=== PATIENT | female | born 1980 | race Asian ===

== ENCOUNTER 2016-12-05 05:46 | Day surgery (SDC) | payer OTHER ==
[~2016-12-05] VITALS: Ht 154.9 cm; Wt 68.2 kg
[~2016-12-05 05:46] MED LIST: IBUP800T28 PO; LEVO50TA6 PO; Lactated Ringer's 1,000 ML IV SCH
[2016-12-05] MEDS ORDERED: DEXTROSE 5% IV SCH (06:00)
[2016-12-05] MEDS ORDERED: GENTAMICIN IV SCH (06:00)
[2016-12-05] MEDS ORDERED: Clindamycin Inj 900 MG in IV Premix 1 EACH IV SCH (06:00)
[2016-12-05] MEDS ORDERED: Gentamicin Per Pharmacist XX ONE (06:00)
[2016-12-05 06:15] VITALS: BP 121/72; PULSE 94; RESP 16; O2SAT 100
[2016-12-05 07:53] LABS: BASOPHILS % (AUTO) 0.9 % (0-3); MONOCYTES % (AUTO) 9.2 % (4-12); Mean Corpuscular Hemoglobin 15.3 pg (27.0-35.0); Mean Corpuscular Volume 58.3 fL (81-100); NEUTROPHILS % (AUTO) 59.3 % (40-74); Platelet Count 298 bil/L (150-400)
--- NOTE | 2016-12-05 08:10 | PCM.DIMED ---
Discharge Instructions Date of Service Dec 05, 2016 Dates of Hospitalization Diet No restrictions Activity No restrictions Call your provider Fever or Chills, Shortness of breath, Bleeding, Chest pain, Vomitting, Excessive diarrhea, Weakness (unilateral) Patient Instructions Follow-up with PCP in: 2 weeks Hernandez Winslow MD Dec 05, 2016 08:10
--- NOTE | 2016-12-05 12:31 | DIS ---
[address] [address] DISCHARGE SUMMARY PATIENT: GLADIS BRAVO : 1980 MR#: [id number] ADMIT: 12/05/2016 JOB ID: [id number] DIS: ADMITTING DIAGNOSES: Menorrhagia, dysmenorrhea, dysfunctional uterine bleeding. DISCHARGE DIAGNOSES: 1. Menorrhagia, dysmenorrhea, dysfunctional uterine bleeding. 2. Severe anemia. HISTORY OF PRESENT ILLNESS: The patient is a 36-year-old, 3, para 3, whose last menstrual period was November 10, 2016. Came to the hospital with dysfunction uterine bleeding for scheduled total laparoscopic hysterectomy with bilateral salpingectomy. The patient had heavy menstrual cycles with six days of severe bleeding followed by seven days of spotting usually. Periods were painful, pain intensity 8/8. Minimally relief was provided with anti-inflammatory nonsteroidal medications. The patient failed hormonal therapy; oral contraceptive pills were not useful in relieving her symptoms. She had an ultrasound that showed the uterus measuring 10.5 x 6.1 x 8.8 cm with endometrial thickness 1.7 cm, normal adnexa. The patient came in the morning for a total laparoscopic hysterectomy with bilateral salpingectomy. The laboratories were sent. Preoperative CBC showed severe anemia with hemoglobin 6.6. Repeat hemoglobin came back 5.8. The patient was asymptomatic. The mucosa was pale. She was expressing some fatigue but otherwise she denied syncope, weakness. She has hypothyroidism, currently on levothyroxine 50 mcg p.o. daily. Due to the severe anemia, the procedure was canceled. The patient was explained the findings. She declined blood transfusion. She agrees for iron supplements with tranexamic acid to decreases the amount of flow during menstrual periods. She will follow up in the office in a couple of weeks for repeat laboratories. ASSESSMENT/PLAN: The patient is a 36-year-old, 3, para 2, with last menstrual period November 10, 2016, who comes for total laparoscopic hysterectomy with bilateral salpingectomy because of dysfunctional uterine bleeding and dysmenorrhea. The patient was found to have severe anemia, declined blood transfusion. Treatment with iron supplements was discussed. She received prescriptions for tranexamic acid and ferrous sulfate. I will follow up with her in the office in two weeks.
[2017-01-26] MEDS ORDERED: FERR-83 PO (16:10)
== END 2016-12-05 23:59 | disposition home or self-care (01) ==
LOC: SAS 05:46
PROVIDERS: ATTEND Legal Medicine
DX: N93.8 Other specified abnormal uterine and vaginal bleeding (principal); Z53.09 Procedure and treatment not carried out because of other contraindication; D64.9 Anemia, unspecified
CPT/HCPCS: 36415; 85025; J1580; J7120

== ENCOUNTER 2017-01-27 06:48 | Day surgery (SDC) | payer OTHER ==
[~2017-01-27] VITALS: Ht 154.9 cm; Wt 70.4 kg
[2017-01-27] VITALS (15 sets, daily range): BP systolic 106–138; BP diastolic 59–80; PULSE 69–100; RESP 12–18; O2SAT 95–100
[~2017-01-27 06:48] MED LIST changes: +FERR-83 PO; -Lactated Ringer's 1,000 ML IV SCH
[2017-01-27] MEDS ORDERED: Neostigmine 1 mg/mL 10 mL Inj ONE (06:49)
[2017-01-27] MEDS ORDERED: Ketamine 10 mg/mL 20 mL Inj ONE (06:49)
[2017-01-27] MEDS ORDERED: fentaNYL-PF 50 mCg/mL 2 mL Inj ONE (06:49)
[2017-01-27] MEDS ORDERED: Glycopyrrolate 0.2 MG/ML 1mL Inj ONE (06:49)
[2017-01-27] MEDS ORDERED: Ondansetron 2 mg/mL 2 mL Inj ONE (06:49)
[2017-01-27] MEDS ORDERED: Dexamethasone 4 mg/mL Inj ONE (06:49)
[2017-01-27] MEDS ORDERED: Propofol 10,000 mCg/mL 20 mL Inj ONE (06:49)
[2017-01-27] MEDS ORDERED: Phenylephrine/NS 100 mCg/mL 10 mL Syringe IVPUSH ONE (06:49)
[2017-01-27] MEDS ORDERED: Rocuronium 10 mg/mL 5 mL Inj ONE (06:49)
[2017-01-27] MEDS: Lactated Ringer's 1,000 ML IV SCH ×2 (07:00→09:16)
[2017-01-27] MEDS ORDERED: MULT-1018 PO (07:37)
[2017-01-27] MEDS ORDERED: tylenol PO (07:37)
[2017-01-27] MEDS ORDERED: MEDR10TA PO (07:37)
[2017-01-27] MEDS: CeFAZolin Inj 2 GM in IV Premix 1 EACH IV ONE ×2 (09:24→09:27)
[2017-01-27] MEDS ORDERED: Bupivacaine-MPF 0.5% W/EPI 30 mL Inj INFILTRATE ONE (10:05)
[2017-01-27] MEDS ORDERED: Lactated Ringer's 1,000 ML IV SCH (10:16)
[2017-01-27] MEDS ORDERED: Lactated Ringer's 500 ML IV PRN (10:16)
--- NOTE | 2017-01-27 10:16 | PCM.HPANE ---
Patient Data Date of Service: Jan 27, 2017 Surgeon Admitting Provider: Attending Provider:Hernandez Winslow MD Primary Care Physician:Maryanne Cannon DO Other Provider:Betsey Rios Anesthesia Reason for Visit Abnormal Uterine Bleeding Ht/WT & BMI Height (Feet): 5 Height (Inches): 1.00 Weight (Kilograms): 70.390 Body Mass Index 29.00 Allergies Coded Allergies: fluconazole (Verified Allergy, Unknown, tongue swelling, 12/05/16) Past Anesthesia History Anesthesia History: Denies:: Abnormal Airway, Anesthesia Reactions, Difficult Intubation, Fam Anesthesia Reaction Diabetes History Hx Diabetes?: No MRSA MRSA: No Medications Home Meds Incl Beta Darren: No Reported Medications Multivitamin (Multi Vitamin Daily)1 Each Tablet1 Each PO DAILY 30 Days Ref 0 01/27/17 Medroxyprogesterone Acetate (Provera)10 Mg [id number] Mg PO 01/27/17 [tylenol] No Conflict [id number] Mg PO prn PRN For Pain 01/27/17 Ferrous Sulfate 325 Mg [id number] Mg PO TID 30 Days Ref 0 01/26/17 Levothyroxine 50 Mcg [id number] Mcg PO DAILY Ref 0 12/03/16 Ibuprofen 800 Mg [id number] Mg PO TID PRN For Pain Ref 0 12/03/16 History History of ENT Problems?: No HEENT History: Denies:: Abnormal Airway Cataracts Difficult Intubation Dysphagia Hearing Problem Sinus Problem TMJ Hx of Heart Problems?: No Cardiovascular History: Denies:: AICD Abdominal Aortic Aneurism Atrial Fibrillation Cardiac Surgery Edema Heart Murmur Hypertension Irregular Heartbeat Pacemaker Rheumatic Fever Hx of Respiratory Problem?: Yes Respiratory History: Positive for:: Pneumonia (last 2014) Denies:: Asthma COPD Emphysema Oxygen Administration Tuberculosis Use of C-PAP Machine Hx Neurologic Problems?: No Neurological History: Denies:: Alzheimer's Disease CVA Dementia Dizziness Headaches (occasional with weather) Multiple Sclerosis Parkinson's Disease Seizures Hx of GI Problems?: No Gastrointestinal History: Denies:: Cirrhosis Gastroesphageal Reflux Gastrointestinal Bleeding Heartburn Hepatitis Hiatal Hernia Rectal Bleeding Hx of Problems?: No Genitourinary History: Denies:: Kidney Stones Urinary Tract Infection Female Hx: Denies:: Currently Problems with Breasts? Skin History: Denies:: History Skin Disorders? Pressure Ulcers Hx Musculoskeletal Problems?: Yes Musculoskeletal History: Denies:: Back Injury Joint Replacement Musculoskeletal Trauma Hx of Psycho/Social Problems?: No Psycho Social History: Denies:: Anxiety Hx Depression Hx Surgeries?: Yes (C section, tubal ) Hx Any Other Health Problems?: Yes Other History: Positive for:: Thyroid Disease Denies:: Cancer History Blood Transfusions: Denies:: Blood Transfusions Hx Diabetes: No Hx Alcohol Use: YesHx Substance Use: No Smoking Status: Never Smoker Have You Smoked inLast 12 mo: No Stop/Bang S-Snoring: Do You Snore Loudly: No T-Tired: feel tired, fatigued: No O-Obsered: Observed not breath: No P-Blood Pressure: treated: No B- Body Mass Index > 35 kg/m2: No A- Age over 50: No N- Neck Large Circumference: No G- Gender Male: No NOVA Total Score: 0 NOVA Risk Assessment: Low Risk, <3 Yes Risk Assessment Category Category 1A: Patient has history of documented sleep apnea, and HAS NOT received any narcotic, sedative or anesthesia administration during this stay. Category 1B: Patient has history of documented sleep apnea, and HAS received any narcotic , sedative or anesthesia administration during this stay Category 2: Patient has SUSPECTED Obstructive Sleep Apnea, and HAS received any narcotic , sedative or anesthesia administration during this stay. Category 3: Patient has SUSPECTED Obstructive Sleep Apnea and HAS NOT received narcotic, sedative or anesthesia administration during this stay. Category 4: Outpatient in Procedural Areas with known sleep apnea or who screen positive for High Risk via the STOP/BANG questionnaire. Exam Exam Vital Signs Vital Signs Date Time Temp Pulse Resp B/P Pulse Ox O2 Delivery O2 Flow Rate FiO2 01/27/17 07:27 36.1 98 18 120/76 99 Room Air General Appearance: Alert, Oriented X3 HEENT/AIRWAY: MP 3 Lungs: Clear to Auscultation Heart: Exam Unremarkable Meds/Labs/Diagnostics Admission Meds Current Medications Lactated Ringer's (Lr) 1,000 ml @ 120 mls/hr Q8H20M IV Last administered on t 07:00; Start 01/27/17 at 05:00; Stop 01/27/17 at 13:19 Plan Impression Patient chart reviewed, patient interviewed and anesthestic plan with risks, benefits, and alternatives discussed, and informed consent obtained. NPO Status: 7pm ASA Physical Status: ASA2 Mod Systemic Disease Anesthetic Plan: GA Bene/Risks/Altern/Consents: Yes HP Complete Prior to Induction: Yes Other patient decline urine test Abdirizak Gillette MD Jan 27, 2017 08:12
[2017-01-27] MEDS ORDERED: MetoCLOpramide 5 mg/mL 2 mL Inj IVPUSH PRN ×2 (10:20→12:25)
[2017-01-27] MEDS ORDERED: Phenylephrine 10,000 mCg/mL Inj IVPUSH PRN (10:20)
[2017-01-27] MEDS ORDERED: EPHEDrine Sulfate 50 mg/mL Inj IVPUSH PRN (10:20)
[2017-01-27] MEDS ORDERED: HYDROmorphone 1 mg/mL Inj IVPUSH PRN (10:20)
[2017-01-27] MEDS ORDERED: Ondansetron 2 mg/mL 2 mL Inj IVPUSH PRN ×2 (10:20→12:25)
[2017-01-27] MEDS ORDERED: Dexamethasone 4 mg/mL Inj IVPUSH PRN (10:20)
[2017-01-27] MEDS ORDERED: Lactated Ringer's 1,000 ML IV ONE (11:47)
[2017-01-27] MEDS ORDERED: oxyCODONE-Acetamin 5-325 mg Tablet PO PRN (12:25)
[2017-01-27] MEDS ORDERED: diphenhydrAMINE 25 mg Capsule PO PRN (12:25)
--- NOTE | 2017-01-27 12:28 | PCM.DIMED ---
Discharge Instructions Date of Service Jan 27, 2017 Dates of Hospitalization Diet No restrictions Activity No restrictions Call your provider Fever or Chills, Shortness of breath, Bleeding, Chest pain, Vomitting, Excessive diarrhea, Weakness (unilateral) Patient Instructions Follow-up with PCP in: 2 weeks Hernandez Winslow MD Jan 27, 2017 12:28
[2017-01-27] MEDS ORDERED: OXYC1TAB24 PO (12:31)
[2017-01-27] MEDS: fentaNYL-PF 50 mCg/mL 2 mL Inj IVPUSH PRN ×3 (13:16→13:27)
--- NOTE | 2017-01-27 13:57 | OP ---
[address] [address] OPERATIVE REPORT PATIENT: GLADIS BRAVO : 1980 MR#: [id number] ADMIT: 01/27/2017 JOB ID: [id number] DATE OF SURGERY: 01/27/2017 PROCEDURE: Total laparoscopic hysterectomy with bilateral salpingectomy. PREOPERATIVE DIAGNOSIS(ES): Abnormal uterine bleeding, dysmenorrhea, chronic pelvic pain. POSTOPERATIVE DIAGNOSIS(ES): Abnormal uterine bleeding, dysmenorrhea, chronic pelvic pain. SURGEON: Hernandez Winslow M.D. CHILD CARE ASSISTANT: Johanny Beltre M.D. ANESTHESIA: General. ESTIMATED BLOOD LOSS: 50 mL. ESTIMATED URINE OUTPUT: 200 mL. ESTIMATED FLUIDS: 1400 mL of lactated Ringer. COMPLICATIONS: None. FINDINGS: Normal appearance of the ovaries. Normal transected prior tubal ligation fallopian tubes. Uterus is diffusely enlarged, about 12 weeks in size. Normal appearance of the cervix, vagina and perineum. INDICATION FOR THE PROCEDURE: The patient is a 36-year-old para 3 who has been having abnormal uterine bleeding, menorrhagia, dysmenorrhea and chronic pelvic pain secondary to abnormal uterine bleeding. The patient was severely anemic and needed iron supplements to correct the anemia.Conservative treatment options were tried and they failed. The patient consented to total laparoscopic hysterectomy with bilateral salpingectomy. PROCEDURE: The patient was brought to the operating room, where she underwent general anesthesia without difficulty. The patient was placed in a dorsal lithotomy position using Lebron stirrups. She was prepped and draped in the usual surgical fashion. She received preoperative antibiotics. Time-out was performed verifying correct patient, correct procedure. Jno Hugger was used to maintain adequate core body temperature. Two Ahmadi retractors were placed in the vagina. The cervix was identified, grasped with a tenaculum and V-care uterine manipulator with middle-sized cervical cup was placed. Gupta catheter was placed as well. Attention was directed to the patient's abdomen where the periumbilical area was injected with solution of 0.5% Marcaine with epinephrine, Veress needle was introduced, CO2 gas was insufflated, and appropriate pneumoperitoneum was achieved. A 0.5 mm subumbilical incision was made with a scalpel and a 5 mm trocar was placed through the incision. The pelvis was visualized with 30 degree laparoscope with the findings mentioned above. Two additional skin incisions were made in the patient's right and left lower quadrant, 5 cm superior and medial from the anterior-superior iliac spine. The 5 mm trocars were placed through the incisions bilaterally. Using Thunderbeat instrument and a DeBakey grasper for proper exposure, the patient's left fallopian tube was from the mesosalpinx. It was followed by transection of utero-ovarian ligament and round ligament. Assistance of Dr. Beltre was necessary for proper exposure, help with visualization and retraction and manipulation of tissue during this case. Final dissection was provided through the anterior and superior leaves of the broad ligament until left uterine artery was reached. The left uterine artery was skeletonized, ligated and transected. Good hemostasis was achieved. Attention was then directed on the patient's contralateral side where the patient's right fallopian tube was from the mesosalpinx. That was followed by transection of the utero-ovarian and round ligaments. Dissection was done through anterior and posterior leaves of the broad ligament until the uterine artery on the patient's right side was achieved. It was skeletonized, ligated and transected. Using Thunderbeat instrument, a circumferential incision was done around the cervix the cervix from the vagina. When that was completed, the specimen, uterus cervix and bilateral fallopian tubes were removed and sent to Pathology. The surgical glove was placed into the vagina to maintain pneumoperitoneum. 2.0 V-Lock suture was used to approximate the vaginal cuff. The uterosacral ligaments were incorporated into the stitch bilaterally to provide support for the vaginal cuff, the vaginal cuff was closed from patient's right to left side using self-righting needle grasper and laparoscopic Ruba grasper. The pelvis was irrigated with warm normal saline and good hemostasis was confirmed. Her abdomen was desufflated from the CO2 gas. All the instruments and trocars were removed. The abdominal skin incisions were closed with 4-0 Monocryl, Dermabond glue was applied as well. Cystoscopy was performed using the 30 degree scope. Both ureters were visualized. Good ureteral jets were seen confirming patency of both ureters. The rest of the bladder mucosa was unremarkable. No pathological findings. When cystoscopy was completed, the bladder was drained. The Gupta catheter was removed. The patient was repositioned back into the supine position. She tolerated the procedure well and was transferred to the recovery room in stable condition. VANDANA
--- NOTE | 2017-01-29 08:02 | PCM.ANEP1 ---
Post Anesthesia Phase 1 PACU Phase 1 Assessment Date of Service: Jan 27, 2017 Anesthetic Administered: GA Level of Alertness: Awake, talking Nausea or Vomiting: No Oxygen Delivery: Room Air Lungs: Clear to Auscultation Abdirizak Gillette MD Jan 29, 2017 08:02
--- NOTE | 2017-01-29 08:03 | PCM.ANEP2 ---
Post Anesthesia Evaluation ASA/CMS Post Anesthesia VS in Patient's Normal Range?: Yes Resp Stable; Airway Patent?: Yes CV Function & Hydration Stable: Yes Mental Status Recovered?: Yes Pain control Satisfactory?: Yes N/V Control Satisfactory?: Yes Abdirizak Gillette MD Jan 29, 2017 08:03
--- NOTE | 2017-02-03 16:11 | PATH ---
SURGICAL PATHOLOGY Attending Physician:Hernandez Winslow MD CASE STATUS: Signed Out * Amended * PATIENT NAME: MONCHO BRAVO PID: [id number] : 1980 DATE COLLECTED:01/27/2017 22:27 SPECIMEN: Uterus +/- tubes/ovaries, except neoplastic, prolapse CLINICAL HISTORY: ABNORMAL UTERINE BLEEDING, PELVIC PAIN 1). UTERUS & FALLOPIAN TUBES FINAL DIAGNOSIS: Uterus and Fallopian Tubes, Total Laparoscopic Hysterectomy with Bilateral Salpingectomy (Weight 220 grams): Cervix with no significant histomorphologic abnormality. Endocervix with no significant histomorphologic abnormality. Weakly proliferative endometrium with a polyp of the anterior wall (2.8 cm in greatest dimension) that demonstrates regions of breakdown; negative for glandular hyperplasia, cytologic atypia, and malignancy. Myometrium with involvement by adenomyosis. Uterine serosa with no significant histomorphologic abnormality. Left fallopian tube (previous tubal ligation by gross examination) with involvement by endometriosis and with multiple benign paratubal cysts (5 to 10 mm in greatest dimension). Right fallopian tube (previous tubal ligation by gross examination) with multiple benign paratubal cysts (5 to 10 mm in greatest dimension). ICD10 N93.8 This case was reviewed and interpreted by Dr. Edith Castañeda. The final diagnosis is unchanged. This amendment is issued in order for the report to cross the interface and be available in the hospital electronic medical record. GROSS DESCRIPTION: The specimen is received in formalin, labeled with the patient's name, sublabeled as uterus & fallopian tubes, and consists of a uterus (220 g, 5.5 cm AP, 11.5 cm SI, 8.8 cm ML) with attached fimbriated fallopian tubes (right: length-5.4 cm, diameter-0.6 cm; left: length-5.7 cm, diameter-0.7 cm). The ovaries are absent. The cervix (1.5 cm AP, 2.8 cm ML) has a transverse os and patent endocervical canal. The anterior endometrial cavity contains a small-pink rubbery pedunculated polyp (2.8 x 2.5 x 1.5 cm). The endometrium (average thickness-0.1 cm) is small-pink smooth and flat. The myometrium (thickness-2.6 cm) is small-white and unremarkable. The serosa is small smooth and shiny. Each fallopian tube contains a white plastic tube ring at the proximal end. The fallopian tubes have small-purple smooth shiny serosa with multiple paratubal cysts (0.5 cm-1. cm) containing clear colorless fluid. The lumens are small and unremarkable. Section code: (A) anterior cervix; (B) posterior cervix; (C-F) anterior endomyometrium, polyp attachment site in cassettes E, F; (G-H) polyp, longitudinally sectioned, entirely submitted; (I, J) posterior endomyometrium; (K) right fallopian tube, serially sectioned, software sales representative; (L) right fimbria, bivalved, entirely submitted; (M) left fallopian tube, serially sectioned, software sales representative; (N) left fimbria, bivalved, entirely submitted. 01/28/17 ICD-9 CODES: CPT CODES: 68879 AMENDMENT(S): Amended: 02/03/2017 by Veronica Jacobson Reason:Miscellaneous The final diagnosis is unchanged. This amendment is issued in order for the report to cross the interface and be available in the hospital electronic medical record. Previous Signout Date: 01/29/2017 Electronically Signed Out Andreina Long MD [facility] [address], [place] [address] Technical component performed at [facility], [address] [place] [address] Ave[address], [place], [address]
== END 2017-01-27 23:59 | disposition home or self-care (01) ==
LOC: SAS 06:48
PROVIDERS: ATTEND Legal Medicine
DX: N93.8 Other specified abnormal uterine and vaginal bleeding (principal); N94.6 Dysmenorrhea, unspecified; R10.2 Pelvic and perineal pain; D50.9 Iron deficiency anemia, unspecified
CPT/HCPCS: 58571; J0690; J1100; J1170; J1885; J2175; J2250; J2370; J2405; J2710; J2765; J3010; J7120

== ENCOUNTER 2017-02-02 21:04 | Inpatient (IN) | payer OTHER ==
[~2017-02-02] VITALS: Ht 154.9 cm; Wt 71.3 kg
[~2017-02-02 21:04] MED LIST changes: +MULT-1018 PO; +OXYC1TAB24 PO; +tylenol PO
[2017-02-02 22:30] VITALS: BP 131/87; PULSE 119; RESP 16; O2SAT 98
[2017-02-02] MEDS ORDERED: Ondansetron 2 mg/mL 2 mL Inj IVPUSH PRN (23:05)
[2017-02-02] MEDS ORDERED: Alum-Mag Hydrox-Simeth 30 mL Suspension PO PRN (23:05)
[2017-02-02] MEDS ORDERED: HYDROcodone-APAP 5-325 mg Tablet PO PRN (23:05)
[2017-02-02] MEDS: 0.9% Sodium Chloride 1,000 ML IV SCH (23:48)
[2017-02-03] VITALS (7 sets, daily range): BP systolic 118–143; BP diastolic 82–102; PULSE 91–112; RESP 16–18; O2SAT 97–100
[2017-02-03] MEDS ORDERED: Piper-Tazo 4.5 Gm/100 mL D5W Minibag Plus - Q8H over 4 hrs IV ONE ×2
[2017-02-03 00:25] LABS: BASOPHILS % (AUTO) 0.2 % (0-3); EOSINOPHILS % (AUTO) 0.2 % (0-5); MONOCYTES % (AUTO) 9.1 % (4-12); Mean Corpuscular Hemoglobin 26.8 pg (27.0-35.0); Mean Corpuscular Volume 82.9 fL (81-100); NEUTROPHILS % (AUTO) 81.7 % (40-74); Platelet Count 259 bil/L (150-400)
--- NOTE | 2017-02-03 01:28 | HP ---
[address] [address] HISTORY AND PHYSICAL PATIENT: GLADIS BRAVO : 1980 MR#: [id number] ADMIT: 02/02/2017 JOB ID: [id number] CHIEF COMPLAINT: The patient was a transfer of care from [facility]. Presented to [facility] with chills, suprapubic pain, urinary urgency and burning urination. HISTORY OF PRESENTING ILLNESS: This is a 36-year-old, 3, para 2-1-0-2, status post total laparoscopic hysterectomy on January 27, 2017. Today is day six postop. The patient presented to the emergency department at [facility] with complaint of chills and suprapubic pain with urinary urgency and burning urination for one day. At presentation, the patient's temperature was 100.3. The patient received ibuprofen, and repeat temperature was 100.6. The patient's heart rate was in the 120s, and after hydration, heart rate went up to 144, then stabilized back in the 120s. Blood pressure remained in the 130s/80s. T-max at [facility] was 100.6 at 1823. Urinalysis was done, with nitrite negative, leukocyte esterase trace, white blood cells 1-5, red blood cells 1-5, bacteria few. CBC with white blood cells of 14.8, hemoglobin 12.6, hematocrit 38.5, platelets 233. Comprehensive metabolic panel with a sodium of 142, potassium 3.5, chloride 103, BUN 9, creatinine 0.6. AST and ALT within normal limits, 17 and 19, respectively. Alkaline phosphatase 67. PT 11, INR 1, APTT 30, all within normal limits. CT scan showed a small amount of free fluid and extensive fat stranding in the pelvis suggestive of infection, given the patient's clinical history. No pneumoperitoneum or discrete abscess collection identified. Mild segmental wall thickening of the sigmoid colon and pericystic fat stranding associated with the inflammatory changes in the pelvis suggestive of reactive colitis and cystitis. A small hypodense lesion in the liver suggestive of hemangioma or hyperdense cyst. Chest x-ray with no cardiopulmonary disease. Blood culture was collected. The patient was started on Zosyn. EKG was performed. EKG showed sinus tachycardia and right bundle branch block. The patient was transferred from [facility] to our hospital for possible postop infection. At the time of my evaluation, the patient reported improvement in the suprapubic pain and the urgency and burning urination resolved. No recent chills. The patient denies nausea or vomiting. Reports some mild headache. The patient does feel that she has a good appetite at this time. The patient reports history of recurrent UTI and history of kidney infections in the past after catheter placement. PAST GYNECOLOGIC HISTORY: Menarche at age 10. Menses was always heavy. In the recent years, the patient has been having heavy bleeding for five days, then intermenstrual spotting. No history of sexually transmitted infections. No history of abnormal Pap smears. PAST OBSTETRIC HISTORY: The patient has a history of IUFD at 7-1/2 months of gestation, then she had full-term spontaneous vaginal delivery, then, a full-term section. PAST MEDICAL HISTORY: Recurrent UTI and kidney infections. History of pneumonia. History of bronchitis. History of thalassemia minor, hypothyroidism, and sciatica. PAST SURGICAL HISTORY: section and history of tubal ligation. SOCIAL HISTORY: Denies smoking, alcohol, or illicit drug abuse. MEDICATIONS: 1. Synthroid 50 mg daily. 2. Percocet. 3. Ibuprofen. 4. Iron. ALLERGY: Allergic to FLUCONAZOLE, causes tongue swelling and lip swelling. FAMILY HISTORY: Mother with thalassemia, dyslipidemia and anxiety. Father with hypertension and diabetes. Sister is a smoker. Children with seasonal allergy and asthma. PHYSICAL EXAMINATION: Vital signs: Temperature 36.9, pulse 119, respiratory rate 16, blood pressure 131/87, pulse oximeter 98 on room air. General: Alert, oriented to time, place, and person. Head: Normocephalic, atraumatic. Neck: Supple. Chest: Equal air entry bilaterally. No added sounds. Cardiovascular: S1 plus S2 plus 0. Abdomen: Soft. Appropriate postop tenderness. No guarding. No rebound tenderness. Incision clean and dry, and healing well. Lower extremities: No edema. ASSESSMENT: 1. This is a 36-year-old, 3, para 2-1-0-2, status post total laparoscopic hysterectomy on January 272016. Today, she is six days postop. Presented with postop fever possibly secondary to urinary tract infection, plus pelvic infection. The patient is responding well to Zosyn. Urinary symptoms resolved. Tachycardia improving and the pain is improving. 2. History of hypothyroidism. PLAN: Will continue with the Zosyn. Follow up blood, urine and vaginal cultures collected at [facility]. Advanced diet as tolerated. Will repeat EKG and consult hospitalist. Will continue in remote telemetry at this time. Plan of care was discussed with the patient. All questions were answered.
--- NOTE | 2017-02-03 01:39 | PCM.CHPMED ---
Subjective Date of Service: Feb 03, 2017 Provider requesting consult: Chas Muñiz MD Primary Physician: Admitting Physician: Chas Muñiz MD Primary Care Physician: Maryanne Cannon DO Attending Physician: Chas Muñiz MD Admit Status: Direct Admit Chief Complaint: Chief Complaint: Transferred from [facility] for post-operative fever. History of Present Illness: Patient is a 36 y/o female who underwent a total laparoscopic hysterectomy at [facility] on 01/27/17 transferred to from [facility] for further evaluation and managment of sepsis secondary to suspected post-operative infeciton. Additional medical history includes: recurrent UTIs, pyelonephritis, thalassemia minor, and hypothyroidism. She presented to [facility] c/o dysuria associated with suprapubic pain and was found to be febrile and tachycardic. She received IV fluids and acetaminophen after which her temperature and tachycardia reportedly became worse. In total she received 3liters of NS and started on zosyn.She states that she was doing well following surgery and then in the last several days she developed a rapid heart rate, increased urinary frequency and generalized fatigue with subjective fever and chills. She denies chest pain, shortness of breath, pain or swelling in her legs, diarrhea, constipation, nausea or vomiting. Labs/Imaging at [facility] prior to transfer: -WBC 14.8, H/H 12.6/38.5, plts 233 -sodium 142, potassium 3.5, chloride 103, bicarb 26, BUN 9, creatinine 0.6, AST/ ALT 17/19, alk phos 67.UA- negative nitrite, trace leukocyte esterase, 1-5 wbc, 1-5 rbcs, few bacteria. -CT scan abd & pelvis showed small amount of free fluid and extensive fat stranding in the pelvis suggestive of infection, mild segmental wall thickening of the sigmoid colon and evidence suggestive of reactive colitis and cystitis. -Chest x-ray with no cardiopulmonary disease. -EKG showed sinus tachycardia and right bundle branch block. Review of Systems: A comprehensive review of systems was conducted with the patient and found to be negative except as above in the History of Present Illness. H Past Medical History Recurrent UTI Pyelonephritis History of thalassemia minor Hypothyroidism Sciatica Abnormal uterine bleeding Dysmenorrhea Chronic pelvic pain Surgical History section and history of tubal ligation. Total laparoscopic hysterectomy with bilateral salpingectomy on January 27, 2017 Home Medications Synthroid 50 mg daily. Percocet. Ibuprofen. Iron Allergies: Coded Allergies: fluconazole (Verified Allergy, Unknown, tongue swelling, 12/05/16) Family History Family History Mother- thalassemia, dyslipidemia and anxiety. Father- hypertension and diabetes Social History Hx Alcohol Use: NoHx Substance Use: No Smoking Status: Never Smoker Living Arrangement: with Family Exam Vital Signs Vital Sign - Last Date Time Temp Pulse Resp B/P Pulse Ox O2 Delivery O2 Flow Rate FiO2 02/03/17 00:20 36.5 104 16 127/83 99 Room Air General: Alert, Oriented X3 Head: Normal Eyes: PERRLA, EOMI, Scleral Anicteric Chest & Lungs: Clear to auscultation & percussion Cardiovascular: Normal S1, Normal S2, No Murmurs/Rubs/Gallops, Other (sinus tachycardia) Abdomen: Tender (suprapubic area), Non-distended Musculoskeletal: Unremarkable Extremities: No cyanosis/clubbing/edma bilat Neurological: Grossly Neurologically Intact Lab and Diagnostics Labs Laboratory Tests Test 02/02/17 23:50 White Blood Count 13.0th/mm3 (3.8-10.1) Red Blood Count 4.26mil/mm3 (3.90-5.20) Hemoglobin 11.4g/dL (12.0-15.6) Hematocrit 35.3% (35.0-46.0) Mean Corpuscular Volume 82.9fL (81-100) Mean Corpuscular Hemoglobin 26.8pg (27.0-35.0) Mean Corpuscular Hemoglobin Concent 32.3% (32.0-37.0) Red Cell Distribution Width 20.8% (12.3-15.4) Platelet Count 259bil/L (150-400) Neutrophils (%) (Auto) 81.7% (40-74) Lymphocytes (%) (Auto) 8.6% (14-46) Monocytes (%) (Auto) 9.1% (4-12) Eosinophils (%) (Auto) 0.2% (0-5) Basophils (%) (Auto) 0.2% (0-3) Sodium Level 139mEq/L (134-144) Potassium Level 3.3mEq/L (3.5-5.2) Chloride Level 104mEq/L (97-108) Carbon Dioxide Level 21mmol/L (18-29) Blood Urea Nitrogen 5mg/dL (6-20) Creatinine 0.45mg/dL (0.57-1.00) Estimat Glomerular Filtration Rate 223mL/min (>59) Glucose Level 128mg/dL (60-99) Calcium Level 8.4mg/dL (8.5-10.1) Thyroid Stimulating Hormone (TSH) 3.500uIU/mL (0.450-4.500) Free Thyroxine 1.47ng/dL (0.82-1.77) Result Diagram: 02/02/17 2350 02/02/17 2350 12-lead ECG EKG sinus tachycardia with rate 109, RBBB and no ST elevation. Assessment & Plan Assessment 36 y/o female who underwent a total laparoscopic hysterectomy at [facility] on 01/27/17 transferred from [facility] for further evaluation and management of post- operative fever and medical team consulted after EKG revealed a RBBB. 1. Sepsis, present on admission, Active -met criteria: temp (100.6F), tachycardia, leukocytosis, suspected UTI or pelvic source of infection. Patient is s/p hysterectomy on 01/27/17. -s/p 3L normal saline prior to transfer -[facility]: -CT scan abdomen and pelvis showed small amount of free fluid and extensive fat stranding in the pelvis suggestive of infection, evidence suggestive of reactive colitis and cystitis. -EKG showed sinus tachycardia and right bundle branch block. -received IV zosyn prior to transfer, continue antibiotics per process technician -admitted with telemetry, continued on IVFs and medical team consulted for RBBB on EKG. -consider blood cultures, trending lactic acid 2. Right bundle branch block, present on admission. Active -Pt denies hx of abnormal EKG in the past. -Recommendations: -check TSH, free T4 -trend troponins -monitor potassium, magnesium and lactic acid -repeat EKG in the morning -consider Echocardiogram -possible discussion with cardiology, following resolution of sepsis to discuss further evaluation and outpatient follow up. Other/chronic problems: -Hypothyroidism- recommend continue home levothyroxine, reevaluate pending results thyroid function -Hx of thalassemia minor Problems: Pain Evaluation: Adequate Pain Control GI Prophylaxis: Not indicated VTE Prophylaxis Indicated: Meets Criteria for Anticoag Therapy VTE Prophylaxis: Sub-Q Heparin (Unfractionated) Resuscitation Status: CPR: Attempt Resuscitation Attending Statement The patient was seen and examined together with house staff on 02/03/2017 and I agree with the history, exam and plan as outlined in the note above. Neelima Phillips DO Feb 03, 2017 01:39 Rosi Palma DO Feb 03, 2017 04:35 Neelima Phillips DO Feb 03, 2017 01:39 Neelima Phillips DO Feb 03, 2017 01:39 Neelima Phillips DO Feb 03, 2017 01:39
--- NOTE | 2017-02-03 05:15 | NUR ---
Admit Patient arrived on unit at 2230 from [facility], able to self transfer from [facility] to bed. Tolerates ambulation well. Oriented to room, bed and call light. C/O insomnia requested pain medication for mild pain, able to sleep post intervention. No further PRNs needed at this time.
[2017-02-03 06:04] LABS: BASOPHILS % (AUTO) 0.2 % (0-3); EOSINOPHILS % (AUTO) 1.2 % (0-5); MONOCYTES % (AUTO) 9.7 % (4-12); Mean Corpuscular Hemoglobin 27.2 pg (27.0-35.0); NEUTROPHILS % (AUTO) 81.3 % (40-74); Platelet Count 256 bil/L (150-400)
[2017-02-03] MEDS ORDERED: KCl 40 mEq/100 mL (CENTRAL) 40 MEQ in IV Premix 1 EACH IV ONE (07:35)
[2017-02-03] MEDS ORDERED: KCl 40 mEq/D5W 500 mL 40 MEQ in IV Premix 1 EACH IV ONE (07:50)
[2017-02-03] MEDS: 0.9% Sodium Chloride 1,000 ML IV SCH ×2 (08:49→15:03)
[2017-02-03] MEDS: Piperacillin-Tazo 3.375 Gm Inj 3.375 GM in Dextrose 5% Minibag Plus 50 ML IV SCH ×2 (10:16→16:57)
[2017-02-03] MEDS ORDERED: Potassium Chloride 20 mEq SR Tablet PO ONE (10:25)
[2017-02-03] MEDS: Senna-Docusate 8.6-50 mg Tablet PO PRN (12:26)
--- NOTE | 2017-02-03 15:46 | NUR ---
PAIN/ACTIVITY Patient complain of slight abdominal pain 5/10. Medicated with motrin and tylenol. Effective at managing and controlling pain. Patient is independent with mobility to bathroom. Gait steady. Encouraged deep breathing and coughing.
--- NOTE | 2017-02-03 16:07 | NUR ---
Social Work-screening: Data:EMR Reviewed. Pt is a36 y/o female who was admitted on 02/02/17 for post op infection per H&P. Pt's insurance is [employer] and PCP is Maryanne Cannon DO. EMR Reviewed. SW met with pt at bedside to discuss discharge planning, SW role explained. Pt is alert and oriented x3. Pt resides at home with her [place] where she remains independent with ADLS. Pt has no HH or SNF history. Pt has no extermination inspector care insurance or VA benefits. SW discussed DPOA/advanced directive, pt has completed this paperwork. SW encouraged a copy to be brought in. Per RN notes, pt has been up independent in her room. SW provided her with phone number and plan on white board in room. Pt's to provide transport home at discharge. No anticipated discharge needs. SW will continue to follow if needs arise. Assessment:Pt who is independent at baseline. Plan:Pt to discharge home when medically stable via POV. No discharge needs identified. SW will continue to follow if needs arise. WILFRID Madden
[2017-02-04] VITALS: BP 124/86; PULSE 82; RESP 16; O2SAT 99
[2017-02-04] MEDS: Piperacillin-Tazo 3.375 Gm Inj 3.375 GM in Dextrose 5% Minibag Plus 50 ML IV SCH ×2 (00:24→08:08)
[2017-02-04 04:40] VITALS: PULSE 71
--- NOTE | 2017-02-04 05:29 | NUR ---
Pain/yeast Pt reporting vaginal and lower abdominal pain up to 02/02 and has been taking Motrin and Tylenol intermittently to control pain. Pt reports this to be working well. Pt has had creamy vaginal discharge, yeast like in appearance. Call made to , who ordered anti-fungal medication and was given per eMAR.
[2017-02-04 06:01] VITALS: BP 124/84; PULSE 76; RESP 16; O2SAT 99
[2017-02-04 06:13] LABS: Mean Corpuscular Hemoglobin 26.6 pg (27.0-35.0); Mean Corpuscular Volume 83.3 fL (81-100)
--- NOTE | 2017-02-04 08:00 | PCM.DIMED ---
Discharge Instructions Date of Service Feb 04, 2017 Dates of Hospitalization Feb 02, 2017 at 22:36 Diet No restrictions Activity No restrictions Call your provider Fever or Chills, Shortness of breath, Bleeding, Chest pain, Vomitting Patient Instructions Follow-up with PCP in: 1 week Hernandez Winslow MD Feb 04, 2017 08:00
[2017-02-04] MEDS ORDERED: ITRA100C PO (08:03)
[2017-02-04] MEDS ORDERED: AMOX-366 PO (08:03)
[2017-02-04] MEDS: Senna-Docusate 8.6-50 mg Tablet PO PRN (08:07)
--- NOTE | 2017-02-04 08:27 | DIS ---
[address] [address] DISCHARGE SUMMARY PATIENT: GLADIS BRAVO : 1980 MR#: [id number] ADMIT: 02/02/2017 JOB ID: [id number] DIS: 02/04/2017 ADMISSION DIAGNOSIS: Pelvic inflammatory disease. DISCHARGE DIAGNOSIS: Urinary tract infection. HISTORY: The patient is a 36-year-old, 2 para 2, who had a total laparoscopic hysterectomy on January 27, 2017, because of dysmenorrhea, abnormal uterine bleeding and iron deficiency anemia. Her postoperative period was benign until postoperative day six when she was complaining of suprapubic pain and dysuria. The patient was seen in [facility]. Diagnosis was possible pelvic inflammatory disease, and transferred to [facility]. The patient had a CAT scan that showed some mild fluid collection in the pelvis. No signs of abscess. Some inflammatory changes. Her maximum temperature at home was 100.6. During her hospital stay, the maximum temperature was 37.2. HOSPITAL COURSE: The patient was started on Zosyn and received two days of antibiotics. On hospital day two, the pain was getting better. She has not been using any narcotics, just Motrin for pain. The patient had sinus tachycardia, was placed on telemetry during her hospital stay. Her condition spontaneously resolved. She has a history of hypothyroidism, taking levothyroxine supplement. Thyroid function testing was normal. On hospital day two, on exam, the trocar skin incisions were dry, clean and intact. There was no rebound and no rigidity. There was mild to moderate tenderness, mostly suprapubic. Her labs showed WBC count of 13.9, hematocrit was 34.2, platelets 256. She received morning dose of Zosyn on February 04, 2017, and was feeling much better. Vital signs came back to normal. The temperature was 36.6, pulse 76, respiratory rate 16, blood pressure 124/84, pulse oximeter was 99% on room air. The abdomen was soft, nontender, nondistended. The signs of dysuria resolved. The labs came back normal, showing WBC count 7.5, hemoglobin 11.1, hematocrit 34.8, platelet count 283. She had a low potassium at admission 3.3, that was corrected with potassium supplement and, on February 04, 2017, it was 3.7. The patient was discharged home on hospital day two, February 04, 2017, in stable condition, with all discharge criteria met. Itraconazole was given for prevention of yeast vaginitis. She received one week of Augmentin 875 mg p.o. b.i.d. Follow up visit in [facility] is scheduled for February 11, 2017. VANDANA
--- NOTE | 2017-02-04 08:56 | PCM.PNMED ---
Subjective Date of Service Feb 04, 2017 Subjective Patient was seen and examined at bedside today. Patient denies any chest pain, shortness of breath, nausea, vomiting, diarrhea. Patient states that her abdominal pain is significantly improved and she feels that she is ready to go home. Overnight events: None Exam Vital Signs Vital Sign - Last Date Time Temp Pulse Resp B/P Pulse Ox O2 Delivery O2 Flow Rate FiO2 02/04/17 06:01 36.6 76 16 124/84 99 Room Air Intake and Output 02/03/17 02/03/17 02/04/17 Cumulative From/Thru 15:00 23:00 07:00 02/02/17 22:30 - 02/04/17 06:00 Intake Total 1753 ml 1813 ml 3766 ml Output Total 2400 ml 2750 ml 6050 ml Balance -647 ml -937 ml -2284 ml Intake Oral 1040 ml 1600 ml 2840 ml IV Total 713 ml 213 ml 926 ml Output Urine Total 2400 ml 2750 ml 6050 ml # Bowel Movements 1 0 1 Exam Physical Exam: GEN: Patient was awake, alert, responding appropriately to questions HEENT: Pupils equal round and reactive to light, extraocular eye muscles intact , Neck soft supple, trachea midline, nomocephalic/atraumatic CV: +S1/S2, regular rate and rhythm, no murmurs auscultated Respiratory: CTAB, no wheezes, rales, rhonchi GI: +bowel sounds x4, soft, compressible, mild tenderness to palpation at the surgical site only, surgical scar at the umbilicus is clean dry and intact no signs of erythema or edema. EXT: no clubbing, cyanosis, edema Neuro: Cranial nerves II-XII grossly intact Psych: mood and affect were appropriate IVs and Medications Medications Reviewed: Medications were reviewed in detail Lab and Diagnostics Result Diagram: 02/04/1754402/04/1745 Assessment & Plan 36 y/o female who underwent a total laparoscopic hysterectomy on 01/27/17 transferred from [facility] for further evaluation and management of post- operative fever and medical team consulted after EKG revealed a RBBB. Sepsis, present on admission, (resolving) -met criteria: temp (100.6F), tachycardia, leukocytosis, suspected UTI or pelvic source of infection. Patient is status post hysterectomy on 4/4/17. - all. All day 3L normal saline prior to transfer -[facility]: -CT scan abdomen and pelvis showed small amount of free fluid and extensive fat stranding in the pelvis suggestive of infection, evidence suggestive of reactive colitis and cystitis. -EKG showed sinus tachycardia and right bundle branch block. -received IV zosyn prior to transfer, continue antibiotics per clinical exercise physiologist -admitted with telemetry, continued on IVFs and medical team consulted for RBBB on EKG. -Urine positive for gram-negative bacilli: This information was obtained from the records review from [facility] Right bundle branch block, present on admission. Active -Pt denies hx of abnormal EKG in the past. -Troponin negative 3 -Follow up EKG today still shows a right bundle branch block however her QTC prolongation has improved -Magnesium 2.2 within normal limits -Patient should consider an echocardiogram as an outpatient and follow-up with cardiology Hypokalemia (resolved) -Patient's potassium today is 3.7 Hypothyroidism chronic and stable -TSH 3.5 within normal limits -Continue Synthroid 50 g daily Patient is clinically stable and the Zosyn has been treating the patient's bacterial infection. The patient has a gram-negative bacillus and should finish a full antibiotic course with Augmentin. Because patient has this new onset of a right bundle branch block it is her recommendation that the patient follow-up with cardiology as an outpatient and possibly have an echocardiogram done in order to have a full workup of this new heart finding. It has been to the patient that she should follow-up with her primary care physician in order to obtain a referral to cardiology. If there are any further concerns please do not hesitate to consult us again. Thank you for the consult signing off. GI Prophylaxis: Not indicated VTE Prophylaxis: Sub-Q Heparin (Unfractionated) Resuscitation Status: CPR: Attempt Resuscitation copies to: Maryanne Cannon Precious L DO Feb 04, 2017 08:56
[2017-02-04 09:19] VITALS: BP 120/83; PULSE 73; RESP 20; O2SAT 100
--- NOTE | 2017-02-04 10:18 | NUR ---
Social Work-discharge: Data:EMR Reviewed. Pt is on day 2 of hospitalization for post op per H&P. Pt is medically stable for discharge. Pt has been up independent in her room. No discharge needs identified. All updated and agreeable to plan. Assessment:Pt who is independent at baseline. Plan:Pt to discharge home today via POV. No discharge needs identified. All updated and agreeable to plan. WILFRID Madden
[2017-02-04 11:28] VITALS: PULSE 80
--- NOTE | 2017-02-04 13:08 | NUR ---
Discharge Pt DC home via private vehicle with . Repeat EKG done prior to leaving shows continued asymptomatic RBBB which was verified with Dr. Rivera. Written material offered to pt and questions answered. Pt will follow up with her PCP this week and request a referral for an Echo per Dr. Rivera request. Pain well controlled with Motrin at this time. Sent home on antibiotics.
== END 2017-02-04 13:10 | disposition home or self-care (01) | DRG 863 ==
LOC: OSC 22:36
PROVIDERS: ADMIT Legal Medicine; ATTEND Obstetrics & Gynecology
DX: T81.4XXA Infection following a procedure, initial encounter (principal); N39.0 Urinary tract infection, site not specified; N76.0 Acute vaginitis; E03.9 Hypothyroidism, unspecified; E78.5 Hyperlipidemia, unspecified; E87.6 Hypokalemia; I45.10 Unspecified right bundle-branch block